=== PATIENT | female | born 1980 | race American Indian/Alaskan Native ===

== ENCOUNTER 2019-01-10 08:57 | Day surgery (SDC) | payer OTHER ==
[2019-01-10] MEDS ORDERED: Bupivacaine HCl 0.5% PF (30 ml) Inj ONE (09:24)
[2019-01-10 09:38] VITALS: BMI 23.9
[2019-01-10] MEDS ORDERED: Lactated Ringer's 1,000 ML IV ONE ×2 (09:50→11:50)
[2019-01-10] MEDS ORDERED: Propofol 10 mg/ml Inj (20 ML) ONE (09:54)
[2019-01-10] MEDS ORDERED: Midazolam 2 MG/2 ML VIAL ONE (09:55)
[2019-01-10] MEDS ORDERED: Neostigmine 1:1000 (1 mg/ml) Inj ONE (09:59)
[2019-01-10] MEDS ORDERED: Succinylcholine 200 mg/10 ml Inj IV ONE (10:00)
[2019-01-10 10:04] VITALS: RESP 18; O2SAT 100
[2019-01-10 10:38] LABS: BASO % 0.7 % (0.0-2.0); EOS % 0.4 % (0.0-4.0); HEMOGLOBIN 9.6 g/dL (12.0-16.0); LYMPH # 1.2 K/uL (1.0-4.3); LYMPH % 36.7 % (20.0-40.0); MEAN CELL VOLUME 70.9 fl (81.0-99.0); MEAN CORPUSCULAR HEMOGLOBIN 22.4 pg (27.0-31.0); MEAN CORPUSCULAR HGB CONC 31.6 g/dL (33.0-37.0); MEAN PLATELET VOLUME 8.1 fl (7.2-11.7); MONO # 0.4 K/uL (0.0-0.8); MONO % 11.4 % (0.0-10.0); NEUT # 1.7 K/uL (1.8-7.0); NEUT % 50.8 % (50.0-75.0); NRBC % 0.4 % (0.0-0.0); RBC 4.3 Mil/uL (3.80-5.20); RED CELL DISTRIBUTION WIDTH 18.7 % (11.5-14.5); WHITE BLOOD COUNT 3.3 K/uL (4.8-10.8)
[2019-01-10] MEDS ORDERED: Rocuronium 10 mg/ml (5 ml) ONE (11:58)
[2019-01-10] MEDS ORDERED: Dexamethasone 4 mg/1 ml ONE (12:13)
[2019-01-10] MEDS ORDERED: DiphenhydrAMINE 50 mg/ml Inj IVP PRN (13:17)
[2019-01-10] MEDS ORDERED: HYDROmorphone 0.5 mg/0.5 ml ISec IVP PRN (13:17)
[2019-01-10] MEDS ORDERED: Dexamethasone 4 mg/1 ml IVP PRN (13:17)
[2019-01-10] MEDS ORDERED: Lactated Ringer's 1,000 ML IV SCH ×2 (13:30→13:45)
[2019-01-10] MEDS ORDERED: Oxycodone/Acetaminophen 5/325 mg Tab PO PRN (13:39)
[2019-01-10 17:33] VITALS: BP 142/78; PULSE 78; TEMP 97.8
--- NOTE | 2019-01-12 07:12 | OP ---
PROCEDURE DATE: 01/10/2019 SURGEON: Harman Felipe MD M[employer]ORY FARM HAND: Cam Santillan MD ANESTHESIOLOGIST: Ivon SANCHEZ,Shaw Heath MD TYPE OF ANESTHESIA: General endotracheal. PREOPERATIVE DIAGNOSES: 1. pelvic pain. 2. abdominal pain. 3. Abnormal uterine bleeding. 4. Rule out pelvic endometriosis. 5. Rule out interstitial cystitis. POSTOPERATIVE DIAGNOSES: 1. pelvic pain. 2. abdominal pain. 3. Abnormal uterine bleeding. 4. Rule out pelvic endometriosis. 5. Rule out interstitial cystitis. PROCEDURES PERFORMED: 1. Exam under anesthesia. 2. Video assisted hysteroscopy. 3. Cystoscopy. 4. Bilateral ureteral catheterization and injection of IC-Green dye. 5. Robotic da Feng operative laparoscopy. 6. Treatment of endometriosis. 7. Excision of endometriosis. COMPLICATIONS: None. SAMPLES SENT: 1. Left Uterosacral l endometriosis. 2. Left periureteral endometriosis. INDICATION FOR THE PROCEDURE AND CONSENT: The patient had a long history of pelvic pain, dysmenorrhea, dyspareunia, abdominal pain, and bladder pain. The patient had been thoroughly evaluated and counseled regarding the pros and cons of the procedure, the reasonable alternatives, and possible complications. She understood and accepted the risks involved. Literature was provided to the patient. The patient was understanding and given her history and per surgical exam, she was at high risk in an average patient. She accepted all the risks involved, and all the questions had been answered to her satisfaction. FINDINGS OF SURGERY: Genitalia: Normal external genitalia, cervix without lesion and polyps. Hysteroscopy: Hysteroscopy shows a clear uterine cavity with no polyps or masses noticed. Cystoscopy: The cystoscopy was performed to rule out endometriosis and also any interstitial cystitis and also injury. The bladder was normal with no evidence of stone, trigonitis, or cystitis. A positive jet flow was identified in both ureters. Laparoscopy: The upper abdomen appeared to be normal. Gallbladder was normal. Liver edges appeared to be normal. Ascending colon and transverse were normal. There was evidence of small implants suggestive of endometriosis. The appendix appeared to benormal . Both fallopian tubes appeared to be patent, DESCRIPTION OF THE PROCEDURE: Initiation of the case: After adequate anesthesia was obtained, the patient was placed in the dorsal lithotomy position, and with extreme care, placement of the patient with hyperextension and hyperflexing of the hips. At this point, the patient was prepped and draped. The surgeon was gowned and gloved. A timeout was taken according to the hospital procedure and the procedure was started. At this point, we performed cystoscopy, bilateral ureteral catheterization. A cystoscope was inserted into the bladder under direct visualization and the bladder was visualized. The bladder was free of lesions and tumors. There was no evidence of interstitial cystitis, and there was only mild amount of trigonitis. At this point, both ureters were identified and appeared to be in their normal anatomical position. At this point, utilizing an open 5-Turkish open-ended catheter, the left ureter was catheterized all the way to the distal ureter, and 5 mL of IC-Green was injected into this ureter. Similarly, the contralateral ureter was catheterized all the way to the distal ureter, and 5 mL of IC-Green was injected into the distal ureter. At this point, the stents were removed, and the cystoscope was removed, and the 16-Turkish Marte was inserted into the bladder. At this point, we proceeded with a hysteroscopy. A speculum was placed into vagina, and the anterior lip of the cervix was grasped. The cervix was dilated, and a hysteroscope was inserted into the cavity. The cavity appeared to be of normal size with no evidence of polyps, cysts, adenomyosis, or fibroids. At this point, we proceeded with placement of a trocar and docking of the da Feng Xi robot. The surgeon was re-gowned and gloved, and open laparoscopy was performed by making incision in the umbilicus and the fascia was incised. The peritoneum was entered in a blunt fashion, and the cannula was inserted under direct visualization. The abdomen was insufflated, and under direct visualization, three additional ports were inserted in the left upper quadrant, left mid quadrant, and right upper quadrant. At this point, the da Feng Xi robot was brought into the field and docked, and the instruments were inserted under direct visualization. All this with extreme care not to injure the bowel or another area. As per dictation, the upper abdomen appeared to be normal with no evidence of any lesions. At this point, we proceeded with treatment of endometriosis and excision of endometriosis. On the left hand side, fibrosis, especially in the left ovarian fossa was excised. In a very progressive step by step fashion, we dissected off fibrosis containing endometriosis both fallopian tubes had adhesions which were freed up At this point, it was checked for hemostasis and appeared to be excellent. Both fallopian tubes were in good condition and patent. At this point we proceeded with destruction of inflammatory areas utilizing the j-plasma energy device. At this point, the da Feng Xi robot was removed. The abdomen was desufflated, and the incisions were closed in layers with 0 PDS for the fascia and 4-0 Monocryl for the skin. At the end of the procedure, all tips and instrument counts were correct. The patient tolerated the procedure well and was taken to the recovery room in excellent condition. Destinee SANCHEZ, Harman DMAON
--- NOTE | 2019-01-19 14:05 | PCM.OP ---
Operative Report - Operative Report Date of Surgery/Procedure: 01/10/19 Time of Surgery/Procedure: 10:00 Surgeon: Dr. Cam Santillan Technical Instructor: Dr. Harman Felipe Anesthesia/Sedation: general/Dr. Gibbons Pre-Operative Diagnosis: Abdominal pain and endometriosis Post-Operative Diagnosis: Same Indication for Surgery: As above Operative Findings: As above Procedure/Operation Description: Lysis of adhesions The patient had been brought to the operating by Dr. Harman Felipe when he init iated the procedure (separate dictation), however, encountered multiple adhesions in the pelvis which involve the intestines. At the taking over the robotic consult these adhesions were lysed using gentle blunt and sharp dissection with the aid of electrocautery. Once the pelvic structures were cleared and the adhesions to the intestine and small bowel were excised and the operation was then turned over to Dr. Harman Felipe (separate dictation). Estimated Blood Loss: 5 cc Complications: none Discharge & Condition: stable
== END 2019-01-10 17:45 | disposition home or self-care (01) ==
LOC: H.OPSURG 08:57
PROVIDERS: ATTEND Obstetrics & Gynecology Reproductive Endocrinology
DX: N80.0 Endometriosis of uterus (principal); E11.9 Type 2 diabetes mellitus without complications; E78.5 Hyperlipidemia, unspecified; I10 Essential (primary) hypertension; D64.9 Anemia, unspecified; N83.8 Other noninflammatory disorders of ovary, fallopian tube and broad ligament; N93.9 Abnormal uterine and vaginal bleeding, unspecified; N94.6 Dysmenorrhea, unspecified; K66.0 Peritoneal adhesions (postprocedural) (postinfection)
CPT/HCPCS: 36415; 58563; 58662; 85025; 86850; 86900; 88305; C1729; J0330; J0690; J1100; J1170; J1885; J2001; J2250; J2405; J2704; J2710; J2765; J3010; J7030; J7120